=== PATIENT | female | born 1985 | race Two or more races ===

== ENCOUNTER 2025-05-20 19:18 | Emergency (ER) | payer MEDICAID, SELFPAY ==
[2025-05-20 19:19] VITALS: BMI 36.8
[2025-05-20 19:38] VITALS: BP 130/85; PULSE 91; RESP 18; TEMP 36.7; O2SAT 99
--- NOTE | 2025-05-20 19:40 | EKG_ITS ---
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
--- NOTE | 2025-05-20 19:40 | XR_ITS ---
EXAMINATION: PA chest single view TECHNIQUE: Upright PA chest single view Date and time: May 20, 2025, 1858 hours INDICATIONS: Shortness of breath today FINDINGS: Normal heart size The lungs are clear. Osseous structures are intact IMPRESSION: No active disease
--- NOTE | 2025-05-20 19:42 | PD.EDRME ---
Rapid Medical Screening Exam RME Arrival date/time: 05/20/25 19:18 This is a case of 40-year-old female with no medical history came into the emergency room due to shortness of breath and palpitation no chest pain for 1 week worsening of the symptoms this patient decided to start consult here in the emergency room Chief Complaint: Shortness of Breath/Dyspnea Vital signs: Vital Signs Temperature 98.0 F 05/20/25 19:38 Pulse Rate 91 05/20/25 19:38 Respiratory Rate 18 05/20/25 19:38 Blood Pressure 130/85 H 05/20/25 19:38 Pulse Oximetry (%) 99 05/20/25 19:38 Oxygen Delivery Method Room Air 05/20/25 19:38 Exam: Clear breath sounds and RRR Clinical Impression: Shortness of breath palpitation
[2025-05-20 20:04] LABS: Basophils # (Auto) 0.0 Thou/mm3 (0.0-0.2); Basophils % (Auto) 1 % (0-2.5); Eosinophils # (Auto) 0.1 Thou/mm3 (0.0-0.5); Eosinophils % (Auto) 2 % (0-10); Hematocrit 38.6 % (36.0-46.0); Hemoglobin 12.3 g/dL (12.0-16.0); Immature Granulocytes Auto 0.02 Thou/mm3 (0.00-0.00); Lymphocytes # (Auto) 2.1 Thou/mm3 (1.0-4.8); Lymphocytes % (Auto) 35 % (10-50); Mean Corpuscular HGB Conc 31.9 g/dl (31.0-37.0); Mean Corpuscular Hemoglobin 26.1 pg (25.0-35.0); Mean Corpuscular Volume 82 fL (80-100); Monocytes # (Auto) 0.3 Thou/mm3 (0.0-0.8); Monocytes % (Auto) 5 % (0-12); Neutrophils # (Auto) 3.4 Thou/mm3 (1.8-7.7); Neutrophils % (Auto) 57 % (37-80); Nucleated Red Blood Cell # 0.00 Thou/mm3 (0.00-0.00); Nucleated Red Blood Cell % 0 /100 WBC (0); Platelet Count 200 Thou/mm3 (140-440); RDW Standard Deviation 44.1 fL (36.4-46.3); Red Blood Count 4.72 Miln/mm3 (4.00-5.20); White Blood Count 5.9 Thou/mm3 (3.6-11.0)
[2025-05-20 20:28] LABS: B-Type Natriuretic Peptide < 20 pg/mL (0-100)
[2025-05-20 20:29] LABS: Alanine Aminotransferase 15 U/L (10-49); Albumin, Serum 4.6 gm/dL (3.5-5.0); Albumin/Globulin Ratio 1.5 (1.2-2.2); Alkaline Phosphatase 84 U/L (46-116); Anion Gap 11 (7-16); Aspartate Amino Transferase 18 U/L (0-34); BUN/Creatinine Ratio 13 Ratio (12-20); Bilirubin,Total 0.3 mg/dL (0.3-1.2); Blood Urea Nitrogen 9 mg/dL (9-23); Calcium 9.0 mg/dL (8.3-10.6); Calcium (Corrected) 9.0 mg/dL (8.5-10.1); Carbon Dioxide 24.4 mMol/L (20.0-31.0); Chloride 106 mMol/L (98-107); Creatinine (Component) 0.7 mg/dL (0.6-1.3); Estimated Creatinine Clearance 123.6 mL/min (>60); Globulin 3.0 gm/dL (2.3-3.5); Glucose 125 mg/dL (74-106); Osmolality,Calculated 280 (275-295); Potassium 3.9 mMol/L (3.4-5.1); Sodium 141 mMol/L (136-145); Total Protein 7.6 gm/dL (5.7-8.2); Troponin I < 0.002 ng/mL (0.0-0.045); eGFR > 60 See Note
[2025-05-20 20:56] LABS: Collection Type, Urine Clean Catch
[2025-05-20 21:13] LABS: Amorphous Crystals,Urine Present (Absent); Bacteria,Urine 3+; Bilirubin,Urine Negative (Negative); Blood,Urine Negative (Negative); Clarity,Urine Clear (Clear/Hazy); Color,Urine Lt-Yellow (Lt Yel-Yel); Glucose, Urine Negative (Negative); Ketones,Urine Negative (Negative); Leukocyte Esterase,Urine Positive (Negative); Nitrite,Urine Negative (Negative); PH,Urine 6.5 (5.0-7.0); Protein,Urine Negative (Neg - Trace); RBC,Urine 4 /hpf (0-3); Specific Gravity,Urine 1.025 (1.001-1.035); Squamous Epithelial Cell,Urine 4 /hpf (0-5); Urobilinogen,Urine 2.0 mg/dL (0.0-1.0); WBC,Urine 2 /hpf (0-5)
[2025-05-20 21:27] LABS: HCG Qualitative,Urine Negative
--- NOTE | 2025-05-20 21:37 | PD.EDADULT ---
ED General RME/HPI General Chief complaint: Shortness of Breath/Dyspnea Stated complaint: SOB X1 WK WORSEN TODAY Time Seen by Provider: 05/20/25 21:31 Arrival date/time: 05/20/25 19:18 CC: Upper chest pressure/funny sensation with inability to take a deep breath onset approximately 1 week ago intermittent in nature, the patient denies fever chills shortness of breath difficulty breathing cough chest pain back pain abdominal pain painful urination bloody urination diarrhea or constipation. RME / HPI RME / HPI narrative: 05/20/25 19:18 This is a case of 40-year-old female with no medical history came into the emergency room due to shortness of breath and palpitation no chest pain for 1 week worsening of the symptoms this patient decided to start consult here in the emergency room Exam: Clear breath sounds and RRR Impression: Shortness of breath palpitation Related Data Home Medications ?Medication ?Instructions ?Recorded ?Confirmed [id number] 1 mg 1 tab PO QDAY 01/15/22 04/07/23 tablet Previous Rx's ?Medication ?Instructions ?Recorded docusate sodium 100 mg capsule 100 mg PO BID #60 caps 04/08/23 (Colace) ibuprofen 800 mg tablet 800 mg PO Q6H PRN pain #90 tabs 04/08/23 lanolin 50 % topical ointment 1 applic topical TID PRN skin 04/08/23 irritation #15 tubes Allergies Allergy/AdvReac Type Severity Reaction Status Date / Time No Known Allergies Allergy Verified 05/20/25 19:18 Review of Systems Review of Systems Narrative Review of Systems: GEN: No fever, no chills, no weight loss EYES: No discharge, no visual changes, no pain HEENT: No ear pain, no congestion, no sore throat PULM: No shortness of breath, no cough, no congestion CV: No chest pain, no dyspnea on exertion, no palpitations GI: No nausea, no vomiting, no diarrhea, no pain, no constipation : No frequency, no urgency, no dysuria MUSC/SKEL: No joint pain, no back pain SKIN: No rash PSYCH: No hallucinations, no depression HEME/LYMPH: No easy bleeding or bruising tendencies NEURO: No weakness, no headache Past Medical History Past Medical History NEUROLOGIC: Negative Neurological Disorders CARDIAC: Negative Cardiac Disorders or Congestive Heart Failure RESPIRATORY: Negative Chronic Obstructive Pulmonary Disease (COPD) GASTROINTESTINAL: Positive Gastrointestinal Disorders, Gall Bladder Disease and Obesity; Negative Hepatitis GENITOURINARY: Negative Genitourinary Disorders or Renal Disease REPRODUCTIVE: Positive Previous Pregnancies (post x2); Negative Breast Cancer, Endometriosis, Pelvic Inflammatory Disease or Uterine Prolapse MUSCULOSKELETAL: Negative Musculoskeletal Disorders ENDOCRINE: Negative Endocrine Disorders, Diabetes Mellitus Type 1 or Diabetes Mellitus Type 2 HEMATOLOGIC: Negative Blood Disorders OTHER HISTORY: Positive Hospitalization (labor, luzmaria); Negative Autoimmune Disease, Down Syndrome, Falls, Blood Transfusions, Blood Transfusion Reaction, Anesthesia Reactions, MRSA, VRSA, Vancomycin-Resistant Enterococci, Human Immunodeficiency Virus (HIV), Chicken Pox, Measles, Mumps, Rubella ([place] Measles), Pertussis, Clostridium Difficile, Cancer or Breast Cancer Family History FAMILY HISTORY: Positive Family Cardiac Disorders (son- heart transplant); Negative Family Psychiatric Problems, Family Respiratory Disorders, Family Gastrointestinal Problems, Family Cancer, Family Surgery or Family Anesthesia Reaction Surgical History SURGICAL: Negative Section Social History SMOKING STATUS: Never smoker SECOND HAND EXPOSURE: No ED Exam Narrative Physical exam: [General: Obese not in any acute distress Head normocephalic HEENT: Eyes pupils are PERRLA EOMs are intact mouth pink moist membranes uvula is midline swallow symmetrical phonation is normal. All other subsystems of HEENT are within acceptable limits Neck is supple nontender Chest equal chest rise nontender to palpation Respiratory: Clear to auscultation no wheezes crackles or rubs CV: Rate rhythm is regular no murmurs rubs or clicks Abdomen is distended secondary to body habitus soft nontender no masses positive bowel sounds all 4 quadrants Back: No CVA tenderness no spinous process tenderness from cervical spine thoracic and lumbar spine Skin: Intact no petechiae rash induration ulceration or crepitus Extremities: Moving all extremity against resistance cap refill less than 2 seconds neurosensory intact Neuro: Awake alert oriented x3 Glascow coma 15 no focal deficits] Course Course Course Narrative: I suspect the patient's urine is a possible cause for the sensations we will treated as UTI and started on antibiotics she is to follow-up with her primary care doctor. Quality Measures none Orders Category Date Time Status EKG (ED ONLY) *Do not use* NOW Care 05/20/25 19:42 Completed EKG (ED Only) Stat Exams 05/20/25 19:40 Draft XR chest 1V Stat Exams 05/20/25 19:40 Completed BNP [B-Type Natriuretic Peptide] Stat Lab 05/20/25 19:52 Completed CBC Stat Lab 05/20/25 19:52 Completed Comprehensive Metabolic Panel Stat Lab 05/20/25 19:52 Completed HCG Qualitative,Urine Stat Lab 05/20/25 20:47 Completed Troponin I Stat Lab 05/20/25 19:52 Completed Urinalysis Stat Lab 05/20/25 20:47 Completed Vital Signs Vital signs: Vital Signs Temperature 98.0 F 05/20/25 19:38 Pulse Rate 91 05/20/25 19:38 Respiratory Rate 18 05/20/25 19:38 Blood Pressure 130/85 H 05/20/25 19:38 Pulse Oximetry (%) 99 05/20/25 19:38 Oxygen Delivery Method Room Air 05/20/25 19:38 Discharge Plan Plan Patient Disposition: HOME (Self Care) Patient condition on transfer: Stable Prescriptions/Referrals Prescriptions/Med Rec: No Action eudvzsch-vuz-Ta-FA 1 mg Tablet 1 tab PO QDAY ibuprofen 800 mg tablet 800 mg PO Q6H MDD 4 PRN (Reason: pain) Qty: 90 0RF docusate sodium [Colace] 100 mg capsule 100 mg PO BID Qty: 60 0RF lanolin 50 % ointment 1 applic topical TID PRN (Reason: skin irritation) Qty: 15 0RF Referrals: Collin Hernandez MD [Primary Care Provider, Family Practice] - In 1 week Problem List Clinical Impression: UTI (urinary tract infection), Obesity (BMI 30-39.9) Patient/Caregiver Discharge Instructions Education Materials: ED CYSTITIS Female Adult Print Language: Turkmen Stand Alone Forms: Dorita Award Info., Patient Portal Info Letter PA/CONSOLIDATION ACCOUNTANT Supervising Physician PA/CONSOLIDATION ACCOUNTANT Supervising Physician: Deng [facility] Clinical Information Provided by: patient Medical Records reviewed [facility] Meds/Rx considered, not ordered None Labs/Rad/Tests considered, not ordered None Chronic Illness/Social Conditions which may negatively complicate care or outcome(s)-explain: None or not applicable EKG Interpretation EKG #1: EKG Interpretation: EKG performed at 1945 shows a ventricular rate of 79 OR interval 145 QRS of 8 7 QTc of 373 QTc of 429. The sinus rhythm. CBC shows no acute leukocytosis anemia thrombocytopenia CMP shows no acute electrolyte imbalances renal impairment transaminitis or T. bili elevation Troponin is negative BNP is unremarkable Urine is leukocyte esterase positive 4 RBCs, 2 WBCs 3+ bacteria Urine hCG is negative Labs Labs: interpreted by me Imaging Imaging interpretation: interpreted by me Imaging Interpretation(s): Chest x-ray is unremarkable for any acute finding present merge intermediate intervention.
== END 2025-05-20 21:47 | disposition home or self-care (01) ==
PROVIDERS: Nurse Practitioner Family; Emergency Provider Emergency Medicine; PCP Family Medicine
DX: N30.90 Cystitis, unspecified without hematuria (principal); E66.9 Obesity, unspecified; Z68.30 Body mass index [BMI] 30.0-30.9, adult
CPT/HCPCS: 36415; 71045; 80053; 81001; 81025; 83880; 84484; 85025; 93005; 99282